=== PATIENT | male | born 1960 ===

== ENCOUNTER 2017-04-23 10:21 | Emergency (ER) | payer SELFPAY ==
[2017-04-23 10:27] VITALS: BMI 35.6
[2017-04-23 10:28] VITALS: BP 133/74; PULSE 74; RESP 16; TEMP 98.5
[2017-04-23 10:36] VITALS: O2SAT 98
--- NOTE | 2017-04-23 11:13 | RAD ---
HISTORY: cough COMPARISON: No prior. TECHNIQUE: Chest PA and lateral FINDINGS: LUNGS: No active pulmonary disease. PLEURA: No significant pleural effusion identified. No pneumothorax apparent. CARDIOVASCULAR: Left subclavian access AICD/pacemaker. Cardiomediastinal silhouette within normal limits OSSEOUS STRUCTURES: Degenerative changes. VISUALIZED UPPER ABDOMEN: Normal. OTHER FINDINGS: None. IMPRESSION: No active disease.
[2017-04-23 11:23] LABS: BASO % 0.4 % (0.0-2.0); EOS # 0.2 K/uL (0.0-0.7); EOS % 1.4 % (0.0-4.0); HEMOGLOBIN 12.1 g/dL (12.0-18.0); LYMPH # 1.4 K/uL (1.0-4.3); LYMPH % 11.2 % (20.0-40.0); MEAN CELL VOLUME 92.2 fl (80.0-94.0); MEAN CORPUSCULAR HEMOGLOBIN 31.2 pg (27.0-31.0); MEAN CORPUSCULAR HGB CONC 33.8 g/dL (33.0-37.0); MEAN PLATELET VOLUME 8.3 fl (7.2-11.7); MONO % 7.7 % (0.0-10.0); NEUT # 9.8 K/uL (1.8-7.0); NEUT % 79.3 % (50.0-75.0); NRBC % 0.1 % (0.0-0.0); RBC 3.88 Mil/uL (4.40-5.90); RED CELL DISTRIBUTION WIDTH 14.2 % (11.5-14.5); WHITE BLOOD COUNT 12.4 K/uL (4.8-10.8)
--- NOTE | 2017-04-23 11:34 | ED PDOC ---
HPI: General Adult Time Seen by Provider: 04/23/17 10:35 Chief Complaint (Nursing): Cough, Cold, Congestion Chief Complaint (Provider): cough and fever History Per: Patient History/Exam Limitations: no limitations Onset/Duration Of Symptoms: Days (2 weeks) Current Symptoms Are (Timing): Still Present Additional Complaint(s): Laci Guillen, a 57 year old male with a past medical history of hypertension presents to the ED complaining of cough with associated symptoms of sore throat onset two weeks ago. Reports patient had fever past Wednesday with associated symptoms of headache and muscle pain. PMD: No family provider Past Medical History Reviewed: Historical Data, Nursing Documentation, Vital Signs Vital Signs: Last Vital Signs Temp 98.5 F 04/23/17 11:33 Pulse 74 04/23/17 11:33 Resp 16 04/23/17 10:27 BP 133/74 04/23/17 10:27 Pulse Ox 98 04/23/17 11:40 - Medical History PMH: HTN - Surgical History Surgical History: Pacemaker - Family History Family History: States: Unknown Family Hx - Home Medications Home Medications: Ambulatory Orders Medication Instructions Recorded Azithromycin [Zithromax] 250 mg PO DAILY #6 tab 04/23/17 - Allergies Allergies/Adverse Reactions: Allergies Allergy/AdvReac Type Severity Reaction Status Date / Time No Known Allergies Allergy Verified 04/23/17 10:36 Review of Systems ROS Statement: Except As Marked, All Systems Reviewed And Found Negative Constitutional: Positive for: Fever ENT: Positive for: Throat Pain Respiratory: Positive for: Cough (yellow sputum ) Musculoskeletal: Positive for: Other (muscle pain ) Neurological: Positive for: Headache Physical Exam - Reviewed Nursing Documentation Reviewed: Yes Vital Signs Reviewed: Yes - Physical Exam Appears: Positive for: Well, Non-toxic, No Acute Distress Head Exam: Positive for: ATRAUMATIC, NORMAL INSPECTION, NORMOCEPHALIC Skin: Positive for: Normal Color, Warm, Dry Eye Exam: Positive for: EOMI, Normal appearance, PERRL ENT: Positive for: Pharyngeal Erythema Neck: Positive for: Normal, Painless ROM, Supple. Negative for: Decreased ROM Cardiovascular/Chest: Positive for: Regular Rate, Rhythm. Negative for: Murmur , Bradycardia Respiratory: Positive for: Rales, Rhonchi. Negative for: Wheezing Gastrointestinal/Abdominal: Positive for: Normal Exam, Bowel Sounds, Soft. Negative for: Tenderness, Guarding Extremity: Positive for: Normal ROM. Negative for: Tenderness, Pedal Edema, Deformity Neurologic/Psych: Positive for: Alert, Oriented (x3) - Laboratory Results Result Diagrams: 04/23/17 11:00 - ECG O2 Sat by Pulse Oximetry: 98 (RA) Pulse Ox Interpretation: Normal Medical Decision Making Medical Decision Making: Time: 10:40 Initial Impression: Flu-like symptoms Differential Diagnosis includes but is not limited to: Influenza and Upper respiratory tract infect Initial Plan: --CBC --Chest X-ray --Blood Culture --Rapid Strep Group A Antigen --Reevaluation --Symptoms greater than 48hrs., not treat for flu but obtain chest x-ray and strep test Time: 11:41 FINDINGS: LUNGS: No active pulmonary disease. PLEURA: No significant pleural effusion identified. No pneumothorax apparent. CARDIOVASCULAR: Left subclavian access AICD/pacemaker. Cardiomediastinal silhouette within normal limits OSSEOUS STRUCTURES: Degenerative changes. VISUALIZED UPPER ABDOMEN: Normal. OTHER FINDINGS: None. IMPRESSION: No active disease. Clinical Impression: Bronchitis Upon provider evaluation patient is medically stable, and requires no further treatment in the ED at this time. Patient will be discharged with Zithromax 250mg for acute bronchitis. Counseling was provided and all questions were answered regarding diagnosis and need for follow up with PMD. There is agreement to discharge plan. Return if symptoms persist or worsen. Documented by Sarah Candelaria acting as a scribe for Ty Melissa MD. All medical record entries made by the Scribe were at my direction and personally dictated by me. I have reviewed the chart and agree that the record accurately reflects my personal performance of the history, physical exam, medical decision making, and the department course for this patient. I have also personally directed, reviewed, and agree with the discharge instructions and disposition. Disposition - Clinical Impression Clinical Impression: Bronchitis - Patient ED Disposition Is Patient to be Admitted: No - Disposition Referrals: Claus Hernandez MD [Staff Provider] - Disposition: Routine/Home Disposition Time: 11:39 Condition: FAIR Prescriptions: Azithromycin [Zithromax] 250 mg PO DAILY #6 tab Instructions: Acute Bronchitis Forms: [facility] ([place]), [facility] ED School/Work Excuse
== END 2017-04-23 12:07 | disposition home or self-care (01) ==
LOC: H.ER 10:21
DX: J40 Bronchitis, not specified as acute or chronic (principal)